=== PATIENT | female | born 1940 | race Caucasian/White ===

== ENCOUNTER 2019-05-20 14:54 | Outpatient (CLI) | payer MEDICAID ==
--- NOTE | 2019-05-20 16:19 | Vascular Lab Report ---
DUPLEX DOPPLER LOWER EXTREMITY VEINS, BILATERAL INDICATION: Lower extremity edema for 6 months. TECHNIQUE: Duplex doppler imaging was performed through the veins of both lower extremities using ve nous compression and other maneuvers. COMPARISON: No relevant prior imaging study available. FINDINGS: Right Common femoral vein: Negative. Right Superficial femoral vein: Negative. Right Popliteal vein: Negative. Right Calf veins: Negative. Left Common femoral vein: Negative. Left Superficial femoral vein: Negative. Left Popliteal vein: Negative. Left Calf veins: Negative. Additional findings: Small bilateral popliteal cysts are suspected.. IMPRESSION: No sonographic evidence for DVT in either lower extremity. Signer Name: Jase Haq Jr, MD Signed: 05/20/2019 4:15 PM Workstation Name: [id number]
== END 2019-05-20 14:55 | disposition home or self-care (01) ==
LOC: VAS 14:54
PROVIDERS: ATTEND Internal Medicine Nephrology
DX: R60.0 Localized edema (principal)
CPT/HCPCS: 93970